=== PATIENT | male | born 1990 | race Caucasian/White ===

== ENCOUNTER 2023-12-27 19:57 | Emergency (ER) | payer BC ==
[2023-12-27 20:14] VITALS: BP 128/94; PULSE 80; RESP 16; TEMP 97.6; BMI 23.0
[2023-12-27] MEDS: SODIUM CHLORIDE 1,000 ML IV ONE (20:20)
[2023-12-27 20:44] LABS: HEMATOCRIT 41.5 % (35.4-49); HEMOGLOBIN 14.1 G/dL (11.7-16.9); MCH 30.8 pg (25.7-33.7); MEAN CELL VOLUME 90.8 fl (80-96); MEAN PLT VOLUME 8.6 fl (7.5-11.1); PLATELET COUNT 267.9 10^3/uL (134-434); RBC 4.57 10^6/uL (4.00-5.60); RDW 14.1 % (11.9-15.9); WHITE BLOOD COUNT 7.5 10^3/uL (4.0-10.8)
[2023-12-27 20:56] LABS: CREATININE 0.9 mg/dl (0.6-1.3); TOT PROT 7.3 g/dl (6.4-8.2)
== END 2023-12-27 22:24 | disposition home or self-care (01) ==
LOC: FER 19:57
PROC: 3E0337Z Introduction of Electrolytic and Water Balance Substance into Peripheral Vein, Percutaneous Approach (ICD-10-PCS; principal; 2023-12-27)
DX: R10.11 Right upper quadrant pain (principal)
CPT/HCPCS: 36415; 76705-TC; 80053; 83690; 85027; 99284-25

== ENCOUNTER 2024-07-12 06:40 | Day surgery (SDC) | payer BC ==
[2024-07-12 06:49] VITALS: BMI 23.0
[2024-07-12] MEDS ORDERED: ONDANSETRON 4 MG/2 ML VIAL ONE (07:29)
[2024-07-12] MEDS ORDERED: ACETAMINOPHEN INJECTION 100 ML ONE (07:30)
[2024-07-12] MEDS: ACETAMINOPHEN 1000 MG/100 ML BAG IVPB ONE (07:36)
[2024-07-12] MEDS: ONDANSETRON 4 MG/2 ML VIAL IVPUSH ONE (07:37)
[2024-07-12 08:13] LABS: HEMATOCRIT 41.3 % (35.4-49); HEMOGLOBIN 13.9 G/dL (11.7-16.9); MCH 31.1 pg (25.7-33.7); MCHC 33.5 g/dl (32.0-35.9); MEAN CELL VOLUME 92.7 fl (80-96); MEAN PLT VOLUME 8.9 fl (7.5-11.1); PLATELET COUNT 289.1 10^3/uL (134-434); RBC 4.45 10^6/uL (4.00-5.60); RDW 13.6 % (11.9-15.9); WHITE BLOOD COUNT 16.5 10^3/uL (4.0-10.8)
[2024-07-12 08:32] LABS: ALBUMIN 4.9 g/dl (3.4-5.0); ALK PHOS 48 U/L (45-117); ANION GAP 10 mmol/L (4-13); BILIRUBIN,TOTAL 1.1 mg/dl (0.2-1); CALCIUM 9.8 mg/dl (8.5-10.1); CHLORIDE 101 mmol/L (98-107); CO2 29 mmol/L (21-32); CREATININE 0.9 mg/dl (0.6-1.3); GLUCOSE,RANDOM 114 mg/dl (74-106); MAGNESIUM 1.8 mg/dL (1.8-2.4); POTASSIUM 3.6 mmol/L (3.5-5.1); SGOT/AST 29 U/L (15-37); SGPT/ALT 24 U/L (7-52); SODIUM 140 mmol/L (136-145); TOT PROT 7.3 g/dl (6.4-8.2)
[2024-07-12 08:58] LABS: PLATELET ESTIMATE ADEQUATE
[2024-07-12] MEDS ORDERED: PIPERACILLIN/TAZOBACTAM 4.5 GM VIAL IVPB ONE (09:50)
[2024-07-12] MEDS: SODIUM CHLORIDE 1,000 ML IV STA (10:01)
[2024-07-12] MEDS: PIPERACILLIN/TAZOB 4.5 GM 4.5 GM in DEXTROSE 5%-WATER - 100 ML IVPB ONE (10:01)
[2024-07-12 10:18] LABS: INR 0.95 (0.83-1.09); PROTHROMBIN TIME (PATIENT) 10.8 SEC (9.7-13.0)
[2024-07-12 10:21] LABS: ACTIVATED PTT 34.7 SECONDS (25.2-36.5)
[2024-07-12] MEDS ORDERED: BUPIVACAINE HCL/PF 2.5 MG/ML - 30 ML VIAL IJ ONE (13:13)
[2024-07-12] MEDS: morphine CARPU-JECT 4 MG/1 ML DISP.SYRIN IVPUSH ONE (13:43)
[2024-07-12] MEDS ORDERED: ROCURONIUM BROMIDE 50 MG/5 ML SYRINGE ONE (14:27)
[2024-07-12] MEDS ORDERED: SUCCINYLCHOLINE CHLORIDE 200 MG/10 ML SYRINGE ONE (14:27)
[2024-07-12] MEDS ORDERED: MIDAZOLAM HCL 2 MG/2 ML SINGLE DOSE VIAL ONE (14:27)
[2024-07-12] MEDS ORDERED: LIDOCAINE HCL/PF 2% SDV 5ML VIAL ONE (14:27)
[2024-07-12] MEDS ORDERED: PROPOFOL 20 ML ONE (14:27)
[2024-07-12 15:12] LABS: METHADONE, UR NEGATIVE (NEGATIVE)
[2024-07-12 15:13] LABS: PHENCYCLIDINE,URINE NEGATIVE (NEGATIVE); URINE AMPHETAMINES NEGATIVE (NEGATIVE); URINE BARBITURATES NEGATIVE (NEGATIVE); URINE BENZODIAZEPINES NEGATIVE (NEGATIVE)
[2024-07-12 15:19] LABS: COCAINE, UR NEGATIVE (NEGATIVE); OPIATES, URI NEGATIVE (NEGATIVE)
[2024-07-12] MEDS ORDERED: SUGAMMADEX SODIUM 200 MG/2 ML VIAL ONE (15:28)
[2024-07-12] MEDS ORDERED: ONDANSETRON 4 MG/2 ML VIAL IVPUSH PRN (15:49)
[2024-07-12] MEDS ORDERED: oxyCODONE HCL 5 MG TABLET PO PRN ×2 (15:49→15:59)
[2024-07-12] MEDS ORDERED: ONDANSETRON 4 MG/2 ML VIAL IVPB PRN (15:59)
[2024-07-12] MEDS: ACETAMINOPHEN 1000 MG/100 ML BAG IV SCH (16:49)
[2024-07-12] MEDS: LACTATED RINGERS SOLUTION 1,000 ML IV SCH (16:55)
[2024-07-12] MEDS: IBUPROFEN 600 MG TABLET (FP) PO SCH (20:39)
[2024-07-12 22:22] VITALS: RESP 18
[2024-07-13] MEDS: DOCUSATE SODIUM 100 MG CAPSULE (FP) PO SCH (09:04)
[2024-07-13 10:27] VITALS: BP 110/65; PULSE 90; TEMP 98
== END 2024-07-13 10:58 | disposition home or self-care (01) ==
LOC: FER 06:40 → FASU 10:27 → FASUSAT 10:27 → FM/S 16:49 → FASUSAT 07-13 10:58
PROC: 0DTJ4ZZ Resection of Appendix, Percutaneous Endoscopic Approach (ICD-10-PCS; principal; 2024-07-12 15:02)
DX: K35.80 Unspecified acute appendicitis (principal)
CPT/HCPCS: 0241U-QW; 36415; 74177-TC; 80053; 80307; 81003; 83690; 83735; 85027; 85610; 85730; 86850; 86900; 86901; 87086; 88304-TC; 93005; 94760; 99285-25; J0131; Q9967